=== PATIENT | male | born 1975 ===

== ENCOUNTER 2017-10-11 08:40 | Day surgery (SDC) | payer OTHER ==
[2017-10-11] VITALS (9 sets, daily range): BP systolic 105–130; BP diastolic 49–79
[~2017-10-11] VITALS: Ht 172.7 cm; Wt 92.7 kg
[~2017-10-11 08:40] MED LIST: ACET-2119 PO; AMIT100T2 PO; CAPS42.57 TD; HYDR12.55 PO; LISI-600 PO; VANCOMYCIN INJ 1000 MG in NORMAL SALINE 250ml IV.SOLN IV ONE; famotidine 20mg tablet PO ONE; ringers solution, lacted 1,000 ML IV SCH
[2017-10-11 10:17] LABS: BASOPHILS % (AUTO) 0.5 % (0-1); EOSINOPHILS # (AUTO) 0.2 X10'3 (0-0.9); HEMATOCRIT 48.5 % (42.0-52.0); HEMOGLOBIN 16.9 g/dl (14.0-17.9); LYMPHOCYTES # (AUTO) 3.4 X10'3 (1.1-4.8); LYMPHOCYTES % (AUTO) 41.6 % (21-51); MEAN CORPUSCULAR HEMOGLOBIN 31.2 PG (27.0-31.0); MEAN CORPUSCULAR HGB CONC 34.9 % (33.0-36.5); MEAN CORPUSCULAR VOLUME 89.3 FL (78-98); MEAN PLATELET VOLUME 8.4 FL (7.4-10.4); MONOCYTES # (AUTO) 0.8 X10'3 (0-0.9); MONOCYTES % (AUTO) 9.7 % (2-12); NEUTROPHILS # (AUTO) 3.7 X10'3 (1.8-7.7); NEUTROPHILS % (AUTO) 46.2 % (42-75); PLATELET COUNT 226 X10'3 (140-440); RED BLOOD COUNT 5.43 X10'6 (4.70-6.10); RED CELL DISTRIBUTION WIDTH 13.6 % (11.5-14.5); WHITE BLOOD COUNT 8.1 X10'3 (4.5-11.0)
[2017-10-11 10:31] LABS: ALANINE AMINOTRANSFERASE 33 U/L (12-78); ALBUMIN 3.8 G/DL (3.4-5.0); ALBUMIN/GLOBULIN RATIO 1.1 (1.1-1.5); ALKALINE PHOSPHATASE 40 IU/L (46-116); ANION GAP 7 (8-16); ASPARTATE AMINO TRANSFERASE 18 U/L (10-37); BILIRUBIN,TOTAL 0.8 MG/DL (0.1-1.0); BLOOD UREA NITROGEN 12 MG/DL (7-18); BUN/CREATININE RATIO 10.9 (5.4-32.0); CALCIUM 9.2 MG/DL (8.5-10.1); CHLORIDE 103 MMOL/L (99-107); GLUCOSE 103 MG/DL (70-104); POTASSIUM 4.3 MMOL/L (3.5-5.1); SODIUM 136 MMOL/L (135-145); TOTAL CARBON DIOXIDE 26.5 MMOL/L (24-32); TOTAL PROTEIN 7.4 G/DL (6.4-8.2); eGFR 74 ML/MIN
[2017-10-11] MEDS ORDERED: ceFAZolin 1000mg inj ONE ×2 (12:16→13:59)
[2017-10-11] MEDS ORDERED: sevoflurane 250ml liquid IH ONE (13:25)
[2017-10-11] MEDS ORDERED: ROPIVAcaine 0.5% (5mg/ml) 30ml vial ONE (13:32)
[2017-10-11] MEDS ORDERED: midazolam 2 mg/2 ml injection ONE (13:34)
[2017-10-11] MEDS ORDERED: LIDOcaine 2% (20mg/ml) 5ml vial ONE (13:35)
[2017-10-11] MEDS ORDERED: propofol inj 20 ML IV ONE (13:35)
[2017-10-11] MEDS ORDERED: fentaNYL /PF 50mcg/ml 5ml ampule ONE (13:35)
[2017-10-11] MEDS ORDERED: ringers solution, lacted 1,000 ML IV SCH (14:14)
[2017-10-11] MEDS ORDERED: ondansetron/PF 4mg/2ml inj IV PRN (14:15)
[2017-10-11] MEDS ORDERED: fentaNYL/PF 50MCG/1 ML 2ML syringe IV PRN ×2 (14:15)
[2017-10-11] MEDS ORDERED: hydrALAZINE 20mg/ml inj. IV PRN (14:15)
[2017-10-11] MEDS ORDERED: labetalol 20mg/4ml (5mg/ml) syringe IV PRN (14:15)
[2017-10-11] MEDS ORDERED: morphine 4 MG/ML inj SYRINge IV PRN ×2 (14:15)
[2017-10-11] MEDS ORDERED: hydrALAZINE 20mg/ml inj. IV ONE (14:49)
[2017-10-11] MEDS ORDERED: ondansetron/PF 4mg/2ml inj ONE (14:49)
[2017-10-11] MEDS ORDERED: dexamethasone sod phosphate 4mg/ml inj. ONE (14:49)
[2017-10-11] MEDS ORDERED: acetaminophen 1,000mg/100ml IV 100 ML IV ONE (16:20)
== END 2017-10-11 17:00 ==
LOC: PAS 08:40 → EEVIPCON 13:30 → PAS 17:00
PROVIDERS: ATTEND Orthopaedic Surgery
DX: S76.191A Other specified injury of right quadriceps muscle, fascia and tendon, initial encounter (principal); I10 Essential (primary) hypertension; B19.20 Unspecified viral hepatitis C without hepatic coma; G89.18 Other acute postprocedural pain; Z88.0 Allergy status to penicillin; Z88.6 Allergy status to analgesic agent; Z79.891 Long term (current) use of opiate analgesic; Z79.899 Other long term (current) drug therapy; Z98.890 Other specified postprocedural states; W22.8XXA Striking against or struck by other objects, initial encounter; Y93.51 Activity, roller skating (inline) and skateboarding; Y92.89 Other specified places as the place of occurrence of the external cause; Y99.8 Other external cause status
CPT/HCPCS: 27380; 36415; 64447; 80053; 85025; 93005; A6449; C1713; J0131; J0360; J0690; J1100; J2001; J2250; J2270; J2405; J2704; J2795; J3010; J3370; J7120; L1832; A7000